=== PATIENT | male | born 1945 | race Caucasian/White ===

== ENCOUNTER → 2019-05-30 09:15 | Outpatient (CLI) | payer MEDICARE, BC ==
--- NOTE | 2019-05-30 10:24 | NUR ---
TIME OUT WAS PERFORMED AT [address] RONEL KIM FOR A RT SHOULDER ARTHROGRAM
== END | disposition home or self-care (01) ==
LOC: D.RAD 09:15 → D.MRI 11:00
PROVIDERS: ATTEND Orthopaedic Surgery
DX: M25.511 Pain in right shoulder (principal)

== ENCOUNTER → 2020-02-14 09:04 | Outpatient (CLI) | payer MEDICARE, BC | END | disposition home or self-care (01) | LOC: D.CT 09:04 | PROVIDERS: ATTEND Family Medicine | DX: R06.00 Dyspnea, unspecified (principal) ==